=== PATIENT | male | born 1970 | race Caucasian/White ===

== ENCOUNTER 2024-08-17 09:25 | Outpatient (CLI) | payer OTHER, SELFPAY ==
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
[2024-08-17 18:23] LABS: Basophils # 0.1 K/mm3 (0-0.2); Basophils % 0.9 % (0.1-2.0); Eosinophils # 0.4 K/mm3 (0.0-0.4); Eosinophils % 3.3 % (0.1-12.0); Hematocrit 50.8 % (42.0-52.0); Hemoglobin 17.1 g/dL (14.1-18.0); Lymphocytes % 15.7 % (10-50); Mean Corpuscular HGB Conc 33.7 g/dL (31.8-35.4); Mean Corpuscular Hemoglobin 31.4 pg (27.0-31.2); Mean Corpuscular Volume 93.4 fl (80-94); Mean Platelet Volume 10.1 fl (7.4-10.4); Monocytes # 0.9 K/mm3 (0.1-1.0); Monocytes % 7.4 % (1.7-9.3); Neutrophils # 9.1 K/mm3 (1.8-7.8); Neutrophils % 72.2 % (37.0-80.0); Nucleated Red Blood Cells # 0 10^3/uL; Nucleated Red Blood Cells % 0 %; Platelet Count 397 K/mm3 (142-424); Red Blood Count 5.44 M/mm3 (4.60-6.20); White Blood Count 12.7 K/mm3 (4.8-10.8)
[2024-08-17 19:19] LABS: Alanine Aminotransferase 23 U/L (12-78); Albumin Level 4.2 g/dl (3.5-5.0); Albumin/Globulin Ratio 1.3 (1.1-1.8); Alkaline Phosphatase 101 U/L (38-126); Aspartate Amino Transferase 28 U/L (17-59); Bilirubin,Total 1.4 mg/dl (0.2-1.3); Blood Urea Nitrogen 19 mg/dl (9-20); Calcium 9.4 mg/dl (8.4-10.2); Carbon Dioxide 24 mmol/L (22.0-30.0); Chloride 103 mmol/L (98-107); Chol/HDL Ratio 3.5 (1-3.5); Cholesterol 139 mg/dl (140-200); Estimated Glomerular Filt Rate 77 ml/min (>60); GFR (African American) 94 ML/MIN (>60); Globulin 3.3 g/dL (1.3-3.2); Glucose 104 mg/dl (74-100); HDL Cholesterol 40 mg/dl (40-60); Sodium 139 mmol/L (136-145); Total Protein,Serum 7.5 g/dl (6.3-8.2); Triglycerides 89 mg/dl (30-150); VLDL Cholesterol 18 mg/dL (0-40)
[2024-08-17 19:31] LABS: Direct LDL Cholesterol 72.25 mg/dL (100-129)
[2024-08-17 19:37] LABS: 25-OH Vitamin D, Total 34.2 ng/mL (30-100)
[2024-08-17 19:51] LABS: Prostate Specific Ag Screen 0.6 ng/ml (0.0-4.0); Thyroid Stimulating Hormone 0.81 uIU/mL (0.465-4.68)
== END 2024-08-17 23:59 | disposition home or self-care (01) ==
LOC: RAD 09:27
PROVIDERS: PCP Family Medicine; Visit Provider Family Medicine
DX: M25.511 Pain in right shoulder (principal); M54.2 Cervicalgia; M54.50 Low back pain, unspecified; M25.552 Pain in left hip; I10 Essential (primary) hypertension; E78.5 Hyperlipidemia, unspecified; J30.2 Other seasonal allergic rhinitis; F17.210 Nicotine dependence, cigarettes, uncomplicated; Z76.89 Persons encountering health services in other specified circumstances; Z85.038 Personal history of other malignant neoplasm of large intestine; Z98.890 Other specified postprocedural states
CPT/HCPCS: 72040; 72100; 73030; 80053; 80061; 82306; 84443; 85025; G0103

== ENCOUNTER 2024-08-31 07:51 | Outpatient (RCR) | payer OTHER, SELFPAY ==
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
== END 2024-08-31 23:59 | disposition home or self-care (01) ==
LOC: PT 07:51
PROVIDERS: Visit Provider Family Medicine
DX: M54.2 Cervicalgia (principal); M54.50 Low back pain, unspecified; M25.519 Pain in unspecified shoulder; M25.559 Pain in unspecified hip; Z98.890 Other specified postprocedural states
CPT/HCPCS: 97163

== ENCOUNTER 2024-09-14 07:49 | Outpatient (CLI) | payer OTHER, SELFPAY ==
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
[2024-09-14] MEDS: GADOTERIDOL INJ 20ML SYRINGE 20 ML IV (08:34)
[2024-09-14] MEDS: SODIUM CHLORIDE 0.9% 10ML SYR (RAD ONLY) 10 ML IV (08:34)
== END 2024-09-14 23:59 | disposition home or self-care (01) ==
LOC: RAD 07:52
PROVIDERS: PCP Family Medicine; Visit Provider Family Medicine
DX: M51.16 Intervertebral disc disorders with radiculopathy, lumbar region (principal); M99.73 Connective tissue and disc stenosis of intervertebral foramina of lumbar region; M25.519 Pain in unspecified shoulder; M25.559 Pain in unspecified hip; M54.2 Cervicalgia; Z98.890 Other specified postprocedural states; V89.2XXA Person injured in unspecified motor-vehicle accident, traffic, initial encounter
CPT/HCPCS: 72158; A9576

== ENCOUNTER 2024-10-18 07:56 | Outpatient (CLI) | payer OTHER, SELFPAY ==
--- OUTSIDE RECORDS SUMMARY | 2024-10-10 10:55 | XMS_ITS | Encounter Summary ---
Author Organization [facility] Address [address] [place] [address] Care Team Providers Care Chief Concierge Name Role Phone RaviEmma sutton MARISA Primary Care Provider [phone] Reason for Visit * Reason Comments Consult * Consultation (Routine) - Closed Specialty Diagnoses / Procedures Referred By Viola floyd Referred To Contact Neurosurgery Diagnoses Low back pain, unspecified Emma Rodrigues APRN [address] [place] [address] Phone: tel: fax: Referral ID Status Reason Start Date Expiration Date V isits Requested Visits Authorized [id number] Closed Specialty Services Required 09/20/2024 03/22/2026 1 1 Encounter Details Date Type Department Care Team (Late st Contact Info) Description 10/10/2024 10:55 AM EDT Consult [facility] [address] [place] [address] Audelia Rashid, PA [address] [facility] [address] [place] [id number] Lumbar spondylolysis (Primary Dx); Herniated intervertebral disc of lumbar spine Social History Tobacco Use Types Packs/Day Years Used Date Smoking Tobacco: Every Day Cigarettes Tobacco Cessation:Ready to Q uit: Not Asked; Counseling Given: Not Answered Alcohol Use Standard Drinks/Week Comments Never 0 (1 standard drink = 0.6 oz pur e alcohol) Sex and Gender Information Value Date Recorded Sex Assigned at Not on file Legal Sex Male 3:05 PM EDT Gender Identity Not on file Sexual Orientation Not on file documented as of this encounter Last Filed Vital Signs Vital Sign Reading Time Taken Comments Blood Pressure 102/70 10/10/2024 10:33 AM EDT Pulse 75 10/10/2024 10:33 AM EDT Temperature - - Respiratory Rate - - Oxygen Saturation 95% 10/10/2024 10:33 AM EDT Inhaled Oxygen Concentration - - Weight 91.8 kg (202 lb 6.4 oz) 10/10/2024 10:33 AM EDT Height 182.9 cm (6') 10/10/2024 10:33 AM EDT Body Mass Index 27.45 10/10/2024 10:33 AM EDT documented in this encounter Plan of Treatment Scheduled Orders Name Type Priority Associated Diagnoses Orde r Schedule XR Lumbar Spine 4+ Views w Flexion Extension Imaging Routine Lumbar spondylolysis Herniated intervertebral disc of lumbar spine Expected: 10/10/2024 (Approximate), Expires: 04/13/2026 documented as of this encounter Visit Diagnoses Diagnosis Lumbar spondylolysis- Primary Lumbosacral spondylosis without myelopathy Herniated intervertebral disc of lumbar spine documented in this encounter Additional Health Concerns Assessment Noted Time A fall risk assessment has been complete d for the patient 10/10/2024 10:35 AM EDT documented as of this encounter Care Teams Chief Concierge Relationship Specialty Start Date End Date Emma Rodrigues APRN [address] [place] [address] PCP - General 10/10/24 documented as of this encounter
--- OUTSIDE RECORDS SUMMARY | 2024-10-18 07:59 | XMS_ITS | Encounter Summary ---
Author Organization Healthcare Address [address] [place] [address] Care Team Providers Care Clearing Supervisor Name Role Phone Unavailable Primary Care Provider Unavailabl e Encounter Details Date Type Department Care Team (Late st Contact Info) Description 09/22/2024 Telephone [facility] [address] [place] [address] Audelia Rashid, TIP [address] [place] [address] Social History Tobacco Use Types Packs/Day Years Used Date Smoking Tobacco: Never Assessed Sex and Gender Information Value Date Recorded Sex Assigned at Not on file Legal Sex Male 3:05 PM EDT Gender Identity Not on file Sexual Orientation Not on file documented as of this encounter Miscellaneous Notes * Telephone Encounter - Constance Gomes - 09/22/2024 11:54 AM EDT Called patient to schedule Consult for referral rec'd by NS. Left for a call back to schedule. Please send secure chat if patient returns call. documented in this encounter Plan of Treatment Not on file documented as of this encounter Visit Diagnoses Not on filedocumented in this encounter
--- OUTSIDE RECORDS SUMMARY | 2024-10-18 07:59 | XMS_ITS | Clinical Summary ---
Author Organization [facility] Address [address] [place] [address] Phone Care Team Providers Care Hydraulic Auto Jack Mechanic Name Role Phone Sharlene Russell Unavailable [phone] Conditions or Problems Problem Name Problem Code Onset Date Status Entry Date Provider Comment Standard Description Annotate SPINAL STENOSIS, LUMBAR M48.06 (ICD-10-CM ) 09/24 Active 09/24 Negro Trammell MD Spinal stenosis, lumbar region HERNIATED LUMBAR DISC 979014424 (SNOMED CT) 08/04 Active 08/04 Gene Oconnor MD Prolapsed lumbar intervertebral disc LUMBAR RADICULOPATH Y 296629130 (SNOMED CT) 08/04 Active 08/04 John Watkins Lumbar radiculopathy FOLLOW-UP EXAMINATION FOLLOWING OTHER SURGERY Z09 (ICD-10-CM ) 12/11 Active 12/11 Dorys Mckinney MA Encounter for follow-up examination after completed treatment for conditions other than malignant neoplasm History of HYPERTENSION 82277125 (SNOMED CT) 11/23 Active 11/23 Izzy Holley MA Hypertensive disorder History of DM 89951385 (SNOMED CT) 11/23 Active 11/23 Izzy Holley MA Diabetes mellitus HERNIATED CERVICAL DISC 241766850 (SNOMED CT) 11/23 Active 11/23 Magy Simms MD Displacement of cervical intervertebral disc BACK PAIN, LUMBAR 631259605 (SNOMED CT) Active Juan Quinones MD Low back pain Take Note of HEADACHE 00540536 (SNOMED CT) Active Juan Quinones MD Headache Take Note of HYPERCHOLEST EROLEMIA, HX OF 829543946 (SNOMED CT) Active Juan Quinones MD History of hypercholestero lemia Medications Medication Instructions Start Date Stop Date Generic Name NDC Provider FLEXERIL 10 MG TABS 1 Q hs then 1/2-1 Q 8prn days Max 3 per day CYCLOBENZAPRINE HCL 42200600439 Negro RILEYICLEYULISSA 4 % EXTERNAL LIQUID Wash the entire back the night prior to the surgery CHLORHEXIDINE GLUCONATE 89563869613 Negro RILEYICLEYULISSA 4 % EXTERNAL LIQUID Wash the entire back the night prior to the surgery CHLORHEXIDINE GLUCONATE 39871837485 Negro Trammell MD FLEXERIL 10 MG TABS 1 Q hs then 1/2-1 Q 8prn days Max 3 per day CYCLOBENZAPRINE HCL 06570591158 Gene Oconnor MD KRILL OIL CAPS [facility] KRILL OIL CAPS [phone] Gene Oconnor MD ZOCOR TABLET [facility] SIMVASTATIN TABS 01089621548 Gene Oconnor MD MEDROL 4 MG TBPK use as directed METHYLPREDNISOLONE 00327074860 Gene Oconnor MD MEDROL 4 MG TBPK use as directed METHYLPREDNISOLONE 30889747107 Magy Simms MD GABAPENTIN CAPS [facility] GABAPENTIN CAPS [phone] Izzy Holley MA METFORMIN HCL 500 MG TABS [facility] METFORMIN HCL [phone] Izzy Holley MA LISINOPRIL TABS [facility] LISINOPRIL TABS 60895459388 Izzy Holley MA ZANAFLEX 2 MG TABS [facility] TIZANIDINE HCL 83703752664 Izzy Holley MA ATIVAN 2 MG TABS [facility] LORAZEPAM [id number] Izzy Holley MA ULTRAM 50 MG ORAL TABLET [facility] TRAMADOL HCL 71105886022 Izzy Holley PB ZANAFLEX 2 MG TABS [facility] TIZANIDINE HCL 03333757250 Juan Quinones MD ATIVAN 2 MG TABS [facility] LORAZEPAM [id number] Juan Quinones MD VICODIN 5-500 MG TABS [facility] HYDROCODONE-ACETAMIN OPHEN [phone] Juan Quinones MD ULTRAM 50 MG ORAL TABLET [facility] TRAMADOL HCL [phone] Juan Quinones MD Medications Administered No information available. Allergies, Adverse Reactions, Alerts Allergy Name Reaction Description Start Date Severity Statu s Provider ELPIDIOFEVER Mild Gene agosto MD Results Date Name Value Unit Range Flag Description Lab Report: [facility] GFR >60 mL/min Glomerular fi ltration rate/1.73 sq M.predicted among non-blacks [Volume Rate/Area] in Serum, Plasma or Blood by Creatinine-based formula (MDRD) GFRAA >60 mL/min Glomerular Fi ltration rate CREATININE 0.9 mg/dL 0.7-1.3 Creatinine [Mass/volume] in Serum or Plasma BUN 12 mg/dL 8-23 Urea nitrogen [Mass/volume] in Serum or Plasma GLUCOSE SER 102 mg/dL 70-100 H Glucose [ Mass/volume] in Serum or Plasma CALCIUM 9.7 mg/dL 8.6-10.3 Calcium [Mol es/volume] in Serum or Plasma ANIONGAP 11 mmol/L 7-16 anion gap, s rojelio CO2 TOTAL 24 mmol/L 22-31 carbon diox mariana, serum, total CHLORIDE 103 mmol/L 98-108 Chloride [Mo les/volume] in Serum or Plasma K BF 4.5 mmol/L 3.5-5.0 potassium, yao dy fluid NA BF 138 mmol/L 135-143 sodium, body fluid Plan of Care Type Date Detail Pending order CT myelogram cer vical Pending order ANETTE Series=1.3 I njections Procedures Code Procedure Name Date Entry Date 55206 Lumbar or Sacral CPT-22963 2 J1040 Depo Medrol 80MG 90391 Fluroscopic Guidance CPT-35057 28889 Lumbar or Sacral CPT-49800 2 09063 Fluroscopic Guidance CPT-96879 J1040 Depo Medrol 80MG Vital Signs Date Name Value Unit Description BMI (Body Mass Index) 26.44 kg/m2 Bod y Mass Index (Ratio) BP Diastolic 82 mm[Hg] blood pressu re, diastolic BP Systolic 126 mm[Hg] blood pressur e, systolic Height 72 [in_us] height E&M Weight Measured 195 [lb_av] weight E& M Weight Measured 195 [lb_av] weight E& M Heart Rate 85 /min pulse rate Body Temperature 98.2 [degF] temperat ure E&M Respiratory Rate 18 /min respirat ory rate E&M Immunizations No information available. Advance Directives No information available.
--- OUTSIDE RECORDS SUMMARY | 2024-10-18 07:59 | XMS_ITS | Encounter Summary ---
Author Organization [facility] Address [address] [place] [address] Care Team Providers Care Grocery Store Courtesy Clerk Name Role Phone Unavailable Primary Care Provider Unavailabl e Encounter Details Date Type Department Care Team (Late st Contact Info) Description 09/14/2024 Orders Only External Location [address] [place] [phone] Provider, External Social History Tobacco Use Types Packs/Day Years Used Date Smoking Tobacco: Never Assessed Sex and Gender Information Value Date Recorded Sex Assigned at Not on file Legal Sex Male 3:05 PM EDT Gender Identity Not on file Sexual Orientation Not on file documented as of this encounter Plan of Treatment Not on file documented as of this encounter Procedures Procedure Name Priority Date/Time Associated Diagnosis Comments MR NEURO OUTSIDE IMAGES 09/14/2024 7:59 AM EDT documented in this encounter Results * MR NEURO OUTSIDE IMAGES (09/14/2024 7:59 AM EDT) Anatomical Region Laterality Modality Magnetic Resonan ce 09/14/2024 7:59 AM EDT us External Provider IMG MRI PROCEDURES Final Resul t documented in this encounter Visit Diagnoses Not on filedocumented in this encounter
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
--- OUTSIDE RECORDS SUMMARY | 2024-10-18 07:59 | XMS_ITS | Encounter Summary ---
Author Organization [place] [address] Care Team Providers Care Hobber Name Role Phone Floyd Krishnan MD Primary Care Provider [phone] Reason for Visit * Reason Onset Date Comments Central Order Completion Outreach 10/14/2024 LDCT Encounter Details Date Type Department Care Team (Late st Contact Info) Description 10/14/2024 Patient Outreach SEP [facility] [address] [place] [address] Floyd Krish[place] [address] Central Order Completion Outreach (LDCT) Social History Tobacco Use Types Packs/Day Years Used Date Smoking Tobacco: Every Day Cigarettes 1 40.5 Started: 05/04/1984 Smokeless Tobacco: Never Alcohol Use Standard Drinks/Week Comments No 0 (1 standard drink = 0.6 oz pur e alcohol) Overall Financial Resource Strain (CARDIA) Answe r Date Recorded Difficulty of Paying Living Expenses Not very noland rd 10/26/2019 PHQ-2 Answer Date Recorded PHQ-2 [...] on file documented as of this encounter Functional Status * Is the person deaf or does he/she have serious difficulty hearing? Answer Date of Assessment Author No 03/27/2021 8:00 AM OPAL Pennie Michel THU * Is the person blind or does he/she have serious difficulty seeing even when wearing glasses? Answer Date of Assessment Author No 03/27/2021 8:00 AM Pennie Vasquez THU * Does this person have serious difficulty walking or climbing stairs? Answer Date of Assessment Author No 03/27/2021 8:00 AM OPAL Pennie Michel THU * Does this person have difficulty dressing or bathing? Answer Date of Assessment Author No 03/27/2021 8:00 AM OPAL Pennie Michel THU * Because of a physical, mental or emotional condition, does this person have difficulty doing errands alone such as visiting a doctor's office or shopping? Answer Date of Assessment Author No 03/27/2021 8:00 AM OPAL JackAnandPennie mcmanus THU documented as of this encounter Mental Status * Because of a physical, mental or emotional condition, does this person have serious difficulty concentrating, remembering or making decisions? Answer Entry Date Author No 03/27/2021 8:00 AM OPAL Pennie Michel THU documented in this encounter Progress Notes * Florence Erwin RN - 10/14/2024 11:23 AM EDT SEP Order Completion Outcome Tracking Contact Attempt:: First LDCT Outcome:: No Answer, Left Voicemail to Return Call at [phone], epicurio Message documented in this encounter Plan of Treatment Not on file documented as of this encounter Goals Goal Patient Goal Type Associated Problems [...] HEMOGLOBIN A1C < 7.0 Result Component 6.3( 4 2:59 PM EST) No Mayra Ferguson RMA documented as of this encounter Visit Diagnoses Not on filedocumented in this encounter Care Teams Hobber Relationship Specialty Start Date End Date Floyd Krishnan MD [address] [place], [place] [address] PCP - General Family Medicine 01/29/23 documented as of this encounter
--- OUTSIDE RECORDS SUMMARY | 2024-10-18 07:59 | XMS_ITS | Clinical Summary ---
Author Organization [facility] Address [address] [place] [address] Care Team Providers Care Court Magistrate Name Role Phone Emma Rodrigues APRN Primary Care Provider Allergies No known active allergies Medications lisinopril 40 MG tablet Take 1 tablet by mouth daily. 09/18/2024 Active rosuvastatin (Crestor) 20 MG tablet Take 1 tablet by mouth nightly. 09/18/2024 Active naproxen (Naprosyn) 500 MG tablet Take 1 tablet by mouth 2 times a day with meals. 09/13/2024 Active Encounters Date Type Department Care Team Description 10/10/2024 10:55 AM EDT Consult [facility] [address] [facility], [place] [address] Audelia Rashid PA Lumbar spondylolysis (Primary Dx); Herniated intervertebral disc of lumbar spine 10/10/2024 Travel 09/23/2024 Telephone [facility] [address], [address] [place] [phone] Audelia Rashid PA 09/22/2024 Telephone [facility] [address], [address] [place] [address] Audelia Rashid PA 09/14/2024 Orders Only External Location [address] [place] [phone] Provider, External from Last 3 Months Social History Tobacco Use Types Packs/Day Years [...] on file Sexual Orientation Not on file Last Filed Vital Signs Vital Sign Reading [...] Mass Index 27.45 10/10/2024 10:33 AM EDT Plan of Treatment Health Maintenance Due Date Last Done Comments [facility]-Depression Screening 1968 [facility]-HIV Screening 1968 [facility]-Hepatitis C Screening 1968 [facility]-/Child/Adol SDOH Screenings 1968 [facility]-Obesity Intervention 1974 [facility]- SDOH Screenings 1986 [facility]-Adult SDOH Screenings 1986 [facility]-DTaP,Tdap,and Td Vaccine s (1 - Tdap) 1987 [facility]-Hepatitis B Vaccines (1 of 3 - 19+ 3-dose series) 1987 [facility]-Pneumococcal Vaccine: 50 + Years (1 of 2 - PCV) 1987 CT Colonography 2013 Colonoscopy 2013 FIT-DNA 2013 FIT 2013 FOBT 2013 Sigmoidoscopy 2013 [facility]-Colorectal Cancer Screening 2013 [facility]-Zoster Vaccines (1 of 2) 2018 [id number] Vaccine (3 - 2023- season) 2024 06/01/2020, 05/11/2020 [facility]-Influenza Vaccine (Seas[place] n Ended) 2025 02/15/2019, 02/15/2018 HPV Vaccines Aged Out No longer eligi ble based on patient's age to complete this topic [facility]-HIB Vaccines Aged Out No longer e ligible based on patient's age to complete this topic [facility]-Hepatitis A Vaccines Aged Out No longer eligible based on patient's age to complete this topic [facility]-IPV Vaccines Aged Out No longer e ligible based on patient's age to complete this topic [facility]-Rotavirus Vaccines Aged Out No lo nger eligible based on patient's age to complete this topic Procedures Procedure Name Priority Date/Time Associated Diagnosis Comments MR NEURO OUTSIDE IMAGES 09/14/2024 7:59 AM EDT from Last 3 Months Results * MR NEURO OUTSIDE IMAGES (09/14/2024 7:59 AM EDT) Anatomical Region Laterality Modality Magnetic Resonan ce 09/14/2024 7:59 AM EDT us External Provider IMG MRI PROCEDURES Final Resul t from Last 3 Mon[address] Insurance Care Teams [address] Magistrate Relationship Specialty Start Date End Date Emma Rodrigues APRN [address] [place] [address] PCP - General 10/10/24
--- OUTSIDE RECORDS SUMMARY | 2024-10-18 08:00 | XMS_ITS | Encounter Summary ---
Author Organization Healthcare Address [address] [place] [address] Care Team Providers Care Nursing Information Systems Coordinator Name Role Phone Unavailable Primary Care Provider Unavailabl e Encounter Details Date Type Department Care Team (Late st Contact Info) Description 09/23/2024 [facility]phone [facility] [address] [place] [address] Audelia Rashid, TIP [address] [place] [address] Social History Tobacco Use Types Packs/Day Years Used Date Smoking Tobacco: Never Assessed Sex and Gender Information Value Date Recorded Sex Assigned at Not on file Legal Sex Male 3:05 PM EDT Gender Identity Not on file Sexual Orientation Not on file documented as of this encounter Miscellaneous Notes * Telephone Encounter - Constance Gomes - 09/23/2024 11:25 AM EDT Second call attempt to schedule Consult for referral rec'd by NS. Left informing patient of scheduled appointment on 10/10 at 10:55AM in [place]. Will send appointment reminder in the mail along with SCAN COORDINATOR Packet to listed address. Left clinic phone number to call back if patient needs to reschedule. Please send secure chat or teams message if patient returns call. documented in this encounter Plan of Treatment Not on file documented as of this encounter Visit Diagnoses Not on filedocumented in this encounter
--- OUTSIDE RECORDS SUMMARY | 2024-10-18 08:00 | XMS_ITS | Encounter Summary ---
Author Organization Healthcare Address [address] [place] [address] Care Team Providers Care Nuclear Powerplant Supervisor Name Role Phone Emma Rodrigues APRN Primary Care Provider [phone] Encounter Details Date Type Department Care Team (Latest Contact Info) Description 10/10/2024 Travel Social History Tobacco Use Types Packs/Day Years Used Date Smoking Tobacco: Every Day Cigarettes Alcohol Use Standard Drinks/Week Comments Never 0 [...] Diagnoses Not on filedocumented in this encounter Additional Health Concerns Assessment Noted Time A fall risk assessment has been complete d for the patient 10/10/2024 10:35 AM EDT documented as of this encounter Care Teams Nuclear Powerplant Supervisor Relationship Specialty Start Date End Date Emma Rodrigues APRN [address] [place] [address] PCP - General 10/10/24 documented as of this encounter
--- NOTE | 2024-10-18 08:02 | XR_ITS ---
FINAL REPORT CLINICAL HISTORY: LUMBAR SPONDYLOLYSIS COMPARISON: 08/17/2024 FINDINGS: 8 views of the lumbosacral spine were obtained including flexion and extension views. The vertebrae are normal height. Alignment is within normal limits. There is moderate disc space narrowing at L3-4 and L4-5. Moderate facet hypertrophy is noted. Prevertebral soft tissues are unremarkable. There is no instability with flexion or extension. IMPRESSION: Degenerative/chronic changes without acute bony abnormality. No instability on flexion or extension. No significant change from previous exam. Reviewed, Interpreted and Dictated by Amadeo Henry MD Transcribed by Dahlia Hardwick Authenticated and [facility]
== END 2024-10-18 23:59 | disposition home or self-care (01) ==
PROVIDERS: PCP Family Medicine; Visit Provider Physician Assistant
DX: M47.816 Spondylosis without myelopathy or radiculopathy, lumbar region (principal)
CPT/HCPCS: 72114